=== PATIENT | female | born 1975 | race Caucasian/White ===

== ENCOUNTER → 2016-08-11 | Outpatient (CLI) | payer BC ==
--- NOTE | 2016-08-11 09:09 | US ---
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 Right arm pain x 1 week SIDE PERFORMED: Right Grayscale, color Doppler, spectral Doppler imaging performed of the deep veins of the right upper ext remity. The right internal jugular vein, visualized portions of the subclavian vein, axillary vein sh ow color flow, vascular waveforms and compressibility. Brachial, radial, ulnar veins show color flow and vascular waveforms, compressibility. The basilic vein and cephalic veins are unremarkable. Right Arm: Appears negative for DVT IMPRESSION: No evident deep venous thrombosis involving the deep veins of the right upper extremity.
== END | disposition home or self-care (01) ==
LOC: RADUSMAIN 08:04
PROVIDERS: ATTEND Surgery
DX: M33.20 Polymyositis, organ involvement unspecified (principal)

== ENCOUNTER → 2017-03-22 | Outpatient (CLI) | payer BC ==
[2017-03-22 14:49] LABS: CH 26.9; CHCM 33.1; HCT 39.9 % (34.0-46.0); HDW 2.88; HGB 13.3 gm/dL (11.4-16.0); MCH 27.3 pg (25.0-35.0); MCHC 33.4 g/dL (31.0-37.0); MCV 81.6 fL (80.0-100.0); Mean Platelet Volume 7.8; RBC 4.89 m/uL (3.80-5.40); RDW 14.3 % (11.5-15.5); WBC 8.6 k/uL (3.8-10.6)
[2017-03-22 14:50] LABS: ALT 41 U/L (9-52); AST 35 U/L (14-36); Alkaline Phosphatase 105 U/L (38-126); Anion Gap 11 mmol/L; Blood Urea Nitrogen 13 mg/dL (7-17); Calcium 9.4 mg/dL (8.4-10.2); Carbon Dioxide 23 mmol/L (22-30); Chloride 103 mmol/L (98-107); Creatine Kinase 70 U/L (30-135); Glucose 91 mg/dL (74-99); Non-African American GFR(MDRD) >60 (>60 ml/min/1.73 sqM); Potassium 4.3 mmol/L (3.5-5.1); Sodium 137 mmol/L (137-145); Total Bilirubin 0.5 mg/dL (0.2-1.3); Total Protein 8.1 g/dL (6.3-8.2)
== END | disposition home or self-care (01) ==
LOC: LABWHC1 14:18
PROVIDERS: ATTEND Psychiatry & Neurology Neurology
DX: G72.49 Other inflammatory and immune myopathies, not elsewhere classified (principal)
CPT/HCPCS: 36415; 80053; 82550; 85027

== ENCOUNTER → 2017-03-29 | Outpatient (CLI) | payer BC ==
[2017-03-29 14:09] LABS: Partial Thromboplastin Time 22.7 sec (22.0-30.0); Prothrombin Time 10.3 sec (9.0-12.0)
[2017-03-29 14:24] LABS: Basophils % (A) 0 %; CH 25.9; CHCM 32.2; Eosinophils # (A) 0.1 k/uL (0-0.7); Eosinophils % (A) 2 %; HCT 38.7 % (34.0-46.0); HDW 2.79; HGB 12.7 gm/dL (11.4-16.0); Luc # (Auto) 0.15; Luc % (Auto) 3; Lymphocytes # (A) 2.2 k/uL (1.0-4.8); Lymphocytes % (A) 38 %; MCH 26.4 pg (25.0-35.0); MCHC 32.7 g/dL (31.0-37.0); MCV 80.8 fL (80.0-100.0); Mean Platelet Volume 7.6; Monocytes # (A) 0.5 k/uL (0-1.0); Monocytes % (A) 9 %; Neutrophils # (A) 2.8 k/uL (1.3-7.7); Neutrophils % (A) 48 %; RBC 4.79 m/uL (3.80-5.40); RDW 13.3 % (11.5-15.5); WBC 5.7 k/uL (3.8-10.6)
[2017-04-01 10:39] LABS: Mis test requested (Blood) Factor VIII Activity
== END | disposition home or self-care (01) ==
LOC: LABWHC1 13:16
PROVIDERS: ATTEND Psychiatry & Neurology Neurology
DX: G72.89 Other specified myopathies (principal); R23.3 Spontaneous ecchymoses
CPT/HCPCS: 36415; 85025; 85240; 85610; 85730

== ENCOUNTER → 2017-03-31 | Outpatient (CLI) | payer BC | END | disposition home or self-care (01) | LOC: LABWHC1 11:11 | PROVIDERS: ATTEND Psychiatry & Neurology Neurology | DX: R23.3 Spontaneous ecchymoses (principal); G72.89 Other specified myopathies | CPT/HCPCS: 36415; 86023 ==

== ENCOUNTER → 2017-06-29 | Outpatient (CLI) | payer BC ==
[2017-06-29 13:14] LABS: CH 25.9; CHCM 31.4; HCT 40.7 % (34.0-46.0); HDW 2.73; HGB 12.8 gm/dL (11.4-16.0); Hypochromasia Slight; MCH 26.2 pg (25.0-35.0); MCHC 31.5 g/dL (31.0-37.0); Mean Platelet Volume 7.8; RBC 4.91 m/uL (3.80-5.40); RDW 14.4 % (11.5-15.5); WBC 6.7 k/uL (3.8-10.6)
[2017-06-29 13:16] LABS: Anion Gap 9 mmol/L; Blood Urea Nitrogen 14 mg/dL (7-17); Calcium 9.7 mg/dL (8.4-10.2); Carbon Dioxide 27 mmol/L (22-30); Chloride 103 mmol/L (98-107); Glucose 93 mg/dL (74-99); Non-African American GFR(MDRD) >60 (>60 ml/min/1.73 sqM); Potassium 4.2 mmol/L (3.5-5.1); Sodium 139 mmol/L (137-145)
[2017-06-29 13:32] LABS: Prothrombin Time 9.7 sec (9.0-12.0)
== END | disposition home or self-care (01) ==
LOC: LABWHC1 12:40
PROVIDERS: ATTEND Nurse Practitioner Acute Care
DX: Z01.812 Encounter for preprocedural laboratory examination (principal)
CPT/HCPCS: 36415; 80048; 85027; 85610

== ENCOUNTER → 2017-11-30 | Outpatient (CLI) | payer BC ==
--- NOTE | 2017-11-30 12:26 | CONS ---
CONSULTATION DATE OF SERVICE: 11/30/2017 A 42-year-old lady who has been evaluated in the [facility] for obstructive sleep apnea-hypopnea syndrome and symptoms of excessive daytime sleepiness, even while she is using her CPAP equipment. HISTORY OF PRESENT ILLNESS/SLEEP-WAKE EVALUATION: Patient had been diagnosed with obstructive sleep apnea about 10 years ago. At that time, she was started on treatment with CPAP but used it for about 8 months and then she stopped using it. At that time, she also lost weight from about 240 pounds down to around 180 pounds, then she increased her weight up to around 230 pounds about 2 years ago. At that time, she had a home sleep apnea test. According to patient, it was borderline. She was started on treatment with auto PAP and she tried to use it until recently when her mask was broken for 2 months, but even when she is using her CPAP, she still continued to feel sleepy during the day, sometimes taking naps with vivid dreams, usually does not feel refreshments after naps. Her sleep schedule on working days from 11 p.m. to 8:30 a.m. and the weekend from 9 p.m. to noon. She sometimes has problem with falling asleep for more than 30 minutes, but not more than 1 hour. No TV in bedroom. She sleeps on the stomach position. She is grinding her teeth and she wakes up from sleep up to 5 times at night sometimes without nocturia. Sometimes she will wake up with episode or of heart racing and shakiness. Often she has started to see her dreams right after closing her eyes, possible hypnagogic hallucinations. Positive history of sleep paralysis. No clear history or cataplexy. [place] Sleepiness Scale is 11. PAST MEDICAL HISTORY: Positive for migraines, hypertension, necrotizing autoimmune myopathy, episodes of muscle weakness in the chest, polycystic ovary, anxiety, depression, supraventricular tachycardia. PAST SURGICAL HISTORY: Status post cardiac ablation x3, last in June of 2017. MEDICATIONS: Inderal, Glucophage, CellCept, Zonegran, vitamin D3 supplement, , lisinopril, Celexa, magnesium supplement, aspirin, IVIG,to the port once in 10 days. SOCIAL HISTORY: Negative for smoking or using alcohol. FAMILY HISTORY: Hypertension, heart problems, fibromyalgia, sleep apnea, cancer. REVIEW OF SYSTEMS: Multiple awakenings from sleep, episodes of migraines, episodes of cardiac arrhythmia, daytime sleepiness. . PHYSICAL EXAM: lady without distress, BP 126/81, HR 72, RR 16, height 5 and 6, weight 236, BMI 38, temperature 99, oxygen saturation at room air 98%. OROPHARYNX: Moderately low position of soft palate. Neck 15-1/2 inches in circumference. ABDOMEN: Obese. Some muscle weakness in her hips bilaterally. LUNGS Clear to percussion and to auscultation. Good air exchange. No wheezing or rhonchi. HEART S1, S2 regular. No murmurs, gallops, or rubs. [employer] Awake, alert, and oriented X3. Cranial nerves 2 to 7 intact. There is no fasciculation or atrophy. noted. No focal deficits observed. IMPRESSION: 1. History of obstructive sleep apnea-hypopnea syndrome for 10 years. Presently, patient is on treatment on CPAP but does not feel improvements with the treatment. Continued to have symptoms of excessive daytime sleepiness and multiple awakenings from sleep. 2. Obesity, body mass index of 38. 3. History of necrotizing autoimmune myopathy with episodes of muscle weakness in the chest. 4. Migraines. 5. Hypertension. 6. Polycystic ovary. 7. Anxiety. 8. Depression. 9. History of supraventricular tachycardia episodes with status post cardiac ablations x3. 10.Excessive daytime sleepiness. [place] Sleepiness Scale increased to 11. Positive history of hypnagogic hallucinations and sleep paralysis. Differential diagnosis include additional diagnosis of narcolepsy with differential diagnosis for idiopathic hypersomnia. PLAN: 1. Prescription for new CPAP mask. 2. Patient will continue to use her CPAP. I will see her in 1 month to check her machine and to check apnea-hypopnea index. If apnea-hypopnea index is abnormal, we will proceed with CPAP titration. 3. If apnea-hypopnea index is normal, but patient continued to have her sleepiness during the day, will proceed with the polysomnogram on CPAP with followup multiple sleep latency test for objective evaluation for her symptoms of excessive daytime sleepiness. Differential diagnosis with narcolepsy and idiopathic hypersomnia. 4. Losing weight. 5. No driving if feeling sleepiness. Thank you very much for referring this patient for consultation. Sincerely, Sunny Green MD, PhD, FAASM Diplomat of [employer] [employer] [place] [employer] Cane Weigher [facility] [place] GIOVANNY / ALFREDO: [id number] /
== END | disposition home or self-care (01) ==
LOC: SLEEP 10:10
PROVIDERS: ATTEND Internal Medicine
DX: G47.33 Obstructive sleep apnea (adult) (pediatric) (principal); E66.9 Obesity, unspecified; M62.81 Muscle weakness (generalized); G43.909 Migraine, unspecified, not intractable, without status migrainosus; I10 Essential (primary) hypertension; E28.2 Polycystic ovarian syndrome; F41.9 Anxiety disorder, unspecified; F32.9 Major depressive disorder, single episode, unspecified; Z98.890 Other specified postprocedural states; Z68.38 Body mass index [BMI] 38.0-38.9, adult; Z86.59 Personal history of other mental and behavioral disorders; Z86.79 Personal history of other diseases of the circulatory system; Z79.82 Long term (current) use of aspirin; Z79.899 Other long term (current) drug therapy
CPT/HCPCS: 99211

== ENCOUNTER → 2017-12-28 | Outpatient (CLI) | payer BC | END | disposition home or self-care (01) | LOC: SLEEP 13:21 | PROVIDERS: ATTEND Internal Medicine | DX: Z53.9 Procedure and treatment not carried out, unspecified reason (principal) ==

== ENCOUNTER → 2018-02-05 | Outpatient (CLI) | payer BC ==
--- NOTE | 2018-02-05 22:15 | US ---
EXAMINATION TYPE: US venous doppler duplex LE RT DATE OF EXAM: 02/05/2018 3:52 PM COMPARISON: NONE CLINICAL HISTORY: R609,Edema and [id number] pain in lower leg RLE. SIDE PERFORMED: Right TECHNIQUE: The lower extremity deep venous system is examined utilizing real time linear array sonog maeve with graded compression, doppler sonography and color-flow sonography. VESSELS IMAGED: External Iliac Vein (EIV) Common Femoral Vein Deep Femoral Vein Greater Saphenous Vein * Femoral Vein Popliteal Vein Proximal Calf Veins (* superficial vessels) Right Leg: Negative for DVT Grayscale, color doppler, spectral doppler imaging performed of the deep veins of the right lower ex tremity. There is normal flow, compressibility, vascular waveforms. IMPRESSION: No ultrasound evidence for acute DVT in the right lower extremity.
== END | disposition home or self-care (01) ==
LOC: RADUSWWP 15:46
PROVIDERS: ATTEND Family Medicine
DX: M79.604 Pain in right leg (principal); R60.9 Edema, unspecified

== ENCOUNTER 2019-11-15 13:09 | Day surgery (SDC) | payer BC ==
[2019-11-14 12:16] VITALS: BMI 37.5
[2019-11-15 13:40] LABS: Glucose,Whole Blood 93 mg/dL (75-99)
[2019-11-15] MEDS ORDERED: IOPAMIDOL-250 50ML BTL IV ONE (13:55)
[2019-11-15 16:04] VITALS: BP 120/63; PULSE 72; RESP 16; TEMP 98.2
--- NOTE | 2019-11-18 10:30 | IR ---
Fluoroscopic portogram([facility]). HISTORY: Device malfunction. The patient presented to the CVL with a [place] needle within the port. Preliminary fluoroscopy demonst rated the catheter to be intact. No evidence of extravasation or obstruction. 0.1 minutes of fluor oscopy and 10 image submitted. IMPRESSION: 1. No obstruction or extravasation. See above.
== END 2019-11-15 14:07 | disposition home or self-care (01) ==
LOC: CATHCVL 13:09
PROVIDERS: ATTEND Radiology Diagnostic Radiology
DX: T82.9XXA Unspecified complication of cardiac and vascular prosthetic device, implant and graft, initial encounter (principal); M33.20 Polymyositis, organ involvement unspecified; R53.82 Chronic fatigue, unspecified; I10 Essential (primary) hypertension; E11.9 Type 2 diabetes mellitus without complications; G43.909 Migraine, unspecified, not intractable, without status migrainosus; E28.2 Polycystic ovarian syndrome; Z11.59 Encounter for screening for other viral diseases; Z91.040 Latex allergy status; Z79.899 Other long term (current) drug therapy; Z79.84 Long term (current) use of oral hypoglycemic drugs; Z98.890 Other specified postprocedural states; Z90.49 Acquired absence of other specified parts of digestive tract; Z90.89 Acquired absence of other organs; Z82.69 Family history of other diseases of the musculoskeletal system and connective tissue; Z80.42 Family history of malignant neoplasm of prostate; Z82.49 Family history of ischemic heart disease and other diseases of the circulatory system
CPT/HCPCS: 36598; 81025; 87635; Q9966

== ENCOUNTER → 2020-11-05 | Outpatient (CLI) | payer BC | END | disposition home or self-care (01) | LOC: LABWHC1 12:33 | PROVIDERS: ATTEND Psychiatry & Neurology Neurology | DX: G72.49 Other inflammatory and immune myopathies, not elsewhere classified (principal) | CPT/HCPCS: 36415; 82550; 84165; 85652; 86038; 86334 ==

== ENCOUNTER → 2021-06-02 | Outpatient (CLI) | payer BC ==
--- NOTE | 2021-06-07 11:37 | MM ---
Reason for exam: screening (asymptomatic). Last mammogram was performed 6 years and 5 months ago. History: Family history of breast cancer in paternal grandmother at age 50. Took hormonal contraceptives for 15 years. Physical Findings: A clinical breast exam by your physician is recommended on an annual basis and results should be correlated with mammographic findings. MG 3D Screening Mammo W/Cad Bilateral CC and MLO view(s) were taken. Prior study comparison: December 30, 2014, bilateral MG diagnostic mammo w CAD RAMAN. There are scattered fibroglandular densities. There is no discrete abnormality. ASSESSMENT: Negative, BI-RAD 1 RECOMMENDATION: Routine screening mammogram of both breasts in 1 year.
== END | disposition home or self-care (01) ==
LOC: RADMAMWWP 14:43
PROVIDERS: ATTEND Obstetrics & Gynecology
DX: Z12.31 Encounter for screening mammogram for malignant neoplasm of breast (principal); Z80.3 Family history of malignant neoplasm of breast
CPT/HCPCS: 77063; 77067

== ENCOUNTER → 2021-06-02 | Outpatient (CLI) | payer BC | END | disposition home or self-care (01) | LOC: LABWHC1 15:02 | PROVIDERS: ATTEND Psychiatry & Neurology Neurology | DX: H02.403 Unspecified ptosis of bilateral eyelids (principal); M62.81 Muscle weakness (generalized); R13.10 Dysphagia, unspecified | CPT/HCPCS: 36415 ==

== ENCOUNTER → 2021-08-25 | Outpatient (CLI) | payer BC ==
--- NOTE | 2021-08-25 14:31 | US ---
EXAMINATION TYPE: US gallbladder DATE OF EXAM: 08/25/2021 COMPARISON: NONE CLINICAL HISTORY: K76.0 R94.5. elevated lft's, cholecystectomy, epigastric pain EXAM MEASUREMENTS: Liver Length: 14.1 cm Gallbladder Wall: Surgically absent CBD: 0.9 cm Right Kidney: 10.0 x 4.3 x 6.2 cm overlying bowel gas limits exam Pancreas: very limited views appear wnl Liver: heterogeneous Gallbladder: Surgically absent Evidence for sonographic Alvarado's sign: no CBD: post diaz upper limits of normal Right Kidney: wnl IMPRESSION: Hepatic heterogeneity which may reflect fatty liver.
== END | disposition home or self-care (01) ==
LOC: RADUSWWP 12:59
PROVIDERS: ATTEND Psychiatry & Neurology Neurology
DX: R93.2 Abnormal findings on diagnostic imaging of liver and biliary tract (principal); Z90.49 Acquired absence of other specified parts of digestive tract
CPT/HCPCS: 76705

== ENCOUNTER 2021-10-08 10:51 | Emergency (ER) | payer BC ==
[2021-10-08 12:50] LABS: Basophils # (A) 0.1 k/uL (0-0.2); Basophils % (A) 1 %; Eosinophils # (A) 0.1 k/uL (0-0.7); Eosinophils % (A) 2 %; HGB 12.5 gm/dL (11.4-16.0); Hypochromasia Slight; Lymphocytes # (A) 1.9 k/uL (1.0-4.8); Lymphocytes % (A) 37 %; MCHC 31.4 g/dL (31.0-37.0); MCV 82.9 fL (80.0-100.0); Monocytes # (A) 0.6 k/uL (0-1.0); Monocytes % (A) 11 %; Neutrophils # (A) 2.5 k/uL (1.3-7.7); Neutrophils % (A) 48 %; Platelet Count 215 k/uL (150-450); RBC 4.82 m/uL (3.80-5.40); RDW 13.3 % (11.5-15.5); WBC 5.2 k/uL (3.8-10.6)
[2021-10-08 13:00] LABS: ALT 89 U/L (4-34); African American GFR (CKD) >90 (>60 ml/min/1.73 sqM); Anion Gap 7 mmol/L; Blood Urea Nitrogen 12 mg/dL (7-17); Calcium 8.4 mg/dL (8.4-10.2); Carbon Dioxide 23 mmol/L (22-30); Chloride 106 mmol/L (98-107); Glucose 92 mg/dL (74-99); Non-African American GFR(CKD) >90 (>60 ml/min/1.73 sqM); Sodium 136 mmol/L (137-145)
[2021-10-08 13:05] LABS: AST 107 U/L (14-36); Alkaline Phosphatase 273 U/L (38-126); Total Protein 9.2 g/dL (6.3-8.2)
--- NOTE | 2021-10-08 14:03 | ED ---
General Adult HPI - General Chief complaint: Recheck/Abnormal Lab/Rx Stated complaint: Infected port Time Seen by Provider: 10/08/21 11:14 Source: patient Mode of arrival: ambulatory Limitations: no limitations - History of Present Illness Initial comments: Patient is a 46-year-old female presenting for evaluation of tenderness surrounding her port. Report is located on the right side of the chest, she has had it for [address] Wakefield. She receives IVIG for necrotizing autoimmune myopathy. One day ago she noticed tenderness and swelling surrounding the area. She denies any fever or chills. No nausea or vomiting. No discharge from the area or warmth of the area. Denies chest pain, shortness of breath, abdominal pain, headache, vision or hearing changes, rash, weakness, numbness or tingling. - Related Data Home Medications Medication Instructions Recorded Confirmed Citalopram Hydrobromide [CeleXA] 20 mg PO DAILY 11/14/19 10/08/21 Ivig 60 gm IV. Q10D 11/14/19 10/08/21 Zonisamide [Zonegran] 300 mg PO HS 11/14/19 10/08/21 metFORMIN HCL [Glucophage] 1,000 mg PO BID 11/14/19 10/08/21 mycophenolate mofetiL [Cellcept] 1,000 mg PO BID 11/14/19 10/08/21 Cholecalciferol [Vitamin D3 (25 50 mcg PO DAILY 10/08/21 10/08/21 Mcg = 1000 Iu)] Losartan Potassium 50 mg PO DAILY 10/08/21 10/08/21 Naproxen Sodium [Aleve] 440 mg PO BID 10/08/21 10/08/21 Sotalol [Betapace] 120 mg PO BID 10/08/21 10/08/21 Ubidecarenone [Co Q-10] 1,200 mg PO TID 10/08/21 10/08/21 Previous Rx's Medication Instructions Recorded Cephalexin [Keflex] 500 mg PO Q6HR 7 Days #27 cap 10/08/21 Allergies Allergy/AdvReac Type Severity Reaction Status Date / Time latex Allergy Rash/Hives Verified 10/08/21 13:05 tuberculin,PPD,multi-puncture AdvReac ALWAYS Verified 10/08/21 13:05 TESTS POSITIVE Review of Systems ROS Statement: Those systems with pertinent positive or pertinent negative responses have been documented in the HPI. ROS Other: All systems not noted in ROS Statement are negative. 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 MIGRAINES History of Any Multi-Drug Resistant Organisms: None Reported Past Surgical History: Appendectomy, Cardiac Ablation, Cholecystectomy, Tonsillectomy Additional Past Surgical History / Comment(s): PORT A CATH. CARDIAC ABLATION X3 Past Anesthesia/Blood Transfusion Reactions: No Reported Reaction Past Psychological History: No Psychological Hx Reported Smoking Status: Never smoker Past Alcohol Use History: None Reported Past Drug Use History: None Reported - Past Family History Father Family Medical History: Cancer General Exam Limitations: no limitations General appearance: alert, in no apparent distress Head exam: Present: atraumatic, normocephalic, normal inspection Eye exam: Present: normal appearance, PERRL, EOMI. Absent: scleral icterus, conjunctival injection, periorbital swelling Neck exam: Present: normal inspection Respiratory exam: Present: normal lung sounds bilaterally. Absent: respiratory distress, wheezes, rales, rhonchi, stridor Cardiovascular Exam: Present: regular rate, normal rhythm, normal heart sounds. Absent: systolic murmur, diastolic murmur, rubs, gallop, clicks Neurological exam: Present: alert, oriented X3, CN II-XII intact Psychiatric exam: Present: normal affect, normal mood Skin exam: Present: warm, dry, intact, normal color, other (Area surrounding the cord is mildly tender and swollen. No erythema or discharge). Absent: rash Course Vital Signs 10/08/21 10/08/21 10:56 14:31 Temperature 98.6 F 98 F Pulse Rate 78 84 Respiratory 20 16 Rate Blood Pressure 138/95 131/89 O2 Sat by Pulse 98 96 Oximetry Medical Decision Making - Medical Decision Making Patient is a 46-year-old female presenting with chief complaint of tenderness surrounding her port located on the left side of the chest. Port has been in for 9 years, used for IVIG due to necrotizing autoimmune myopathy. On examination of the area is mildly tender and there is some swelling noted. Area is not erythematous and there is no discharge or cellulitic changes seen. Labwork shows no leukocytosis, lactic acid was negative. Cultures obtained. Spoke with Dr. Saavedra, who advised the use of an oral antibiotic while cultures are pending. Patient was sent home on Keflex 500 mg 4 times a day for 7 days. Educated the patient on return parameters on alarms symptoms. Answered all questions. Follow-up with PCP in one to 2 days. Report back to ER with any worsening symptoms. Patient conveyed verbal understanding and agreed to the plan. My attending is Dr. Mg. - Lab Data Result diagrams: 10/08/21 12:34 10/08/21 12:34 Lab Results 10/08/21 10/08/21 10/08/21 Range/Units 12:34 12:34 12:34 WBC 5.2 (3.8-10.6) k/uL RBC 4.82 (3.80-5.40) m/uL Hgb 12.5 (11.4-16.0) gm/dL Hct 40.0 (34.0-46.0) % MCV 82.9 (80.0-100.0) fL MCH 26.0 (25.0-35.0) pg MCHC 31.4 (31.0-37.0) g/dL RDW 13.3 (11.5-15.5) % Plt Count 215 (150-450) k/uL MPV 9.0 Neutrophils % 48 % Lymphocytes % 37 % Monocytes % 11 % Eosinophils % 2 % Basophils % 1 % Neutrophils # 2.5 (1.3-7.7) k/uL Lymphocytes # 1.9 (1.0-4.8) k/uL Monocytes # 0.6 (0-1.0) k/uL Eosinophils # 0.1 (0-0.7) k/uL Basophils # 0.1 (0-0.2) k/uL Hypochromasia Slight Sodium 136 L (137-145) mmol/L Potassium 5.0 (3.5-5.1) mmol/L Chloride 106 (98-107) mmol/L Carbon Dioxide 23 (22-30) mmol/L Anion Gap 7 mmol/L BUN 12 (7-17) mg/dL Creatinine 0.48 L (0.52-1.04) mg/dL Est GFR (CKD-EPI)AfAm >90 (>60 ml/min/1.73 sqM) Est GFR (CKD-EPI)NonAf >90 (>60 ml/min/1.73 sqM) Glucose 92 (74-99) mg/dL Plasma Lactic Acid Solomon 1.1 (0.7-2.0) mmol/L Calcium 8.4 (8.4-10.2) mg/dL Total Bilirubin 1.0 (0.2-1.3) mg/dL AST 107 H (14-36) U/L ALT 89 H (4-34) U/L Alkaline Phosphatase 273 H (38-126) U/L Total Protein 9.2 H (6.3-8.2) g/dL Albumin 4.0 (3.5-5.0) g/dL Disposition Clinical Impression: Suspected soft tissue infection Disposition: HOME SELF-CARE Condition: Good Instructions (If sedation given, give patient instructions): Cellulitis (ED) Additional Instructions: Follow-up with PCP in one to 2 days. You will be contacted with blood culture results. Take medication as prescribed. Report back to ER with any worsening symptoms or new onset alarming symptoms, including but not limited to fever, chills, nausea, vomiting, increased redness or swelling, increased tenderness, discharge from the site. Prescriptions: Cephalexin [Keflex] 500 mg PO Q6HR 7 Days #27 cap Is patient prescribed a controlled substance at d/c from ED?: No Referrals: Juan J Shelby DO [Primary Care Provider] - 1-2 days Time of Disposition: 14:16
[2021-10-08] MEDS ORDERED: CEPHALEXIN 500 MG CAP PO STA (14:07)
[2021-10-08 14:32] VITALS: BP 131/89; PULSE 84; RESP 16; TEMP 98
== END 2021-10-08 14:31 | disposition home or self-care (01) ==
LOC: EC 10:51
DX: R07.89 Other chest pain (principal); M79.89 Other specified soft tissue disorders; I10 Essential (primary) hypertension; I48.91 Unspecified atrial fibrillation; Z79.84 Long term (current) use of oral hypoglycemic drugs; Z79.899 Other long term (current) drug therapy
CPT/HCPCS: 36415; 80053; 83605; 85025; 87040; 99283

== ENCOUNTER → 2022-03-24 | Outpatient (CLI) | payer BC ==
[2022-03-24 18:15] LABS: Basophils # (A) 0.06 X 10*3/uL (0.00-0.10); Basophils % (A) 1.1 %; Eosinophils # (A) 0.23 X 10*3/uL (0.04-0.35); Eosinophils % (A) 4.3 %; HCT 40.1 % (37.2-46.3); HGB 12.1 g/dL (12.0-15.0); Immature Grans, Automated 0.4 %; Lymphocytes # (A) 2.13 X 10*3/uL (0.90-5.00); Lymphocytes % (A) 39.4 %; MCH 23.7 pg (27.0-32.0); MCHC 30.2 g/dL (32.0-37.0); MCV 78.6 fL (80.0-97.0); Mean Platelet Volume 11.9 fL (9.5-12.2); Monocytes # (A) 0.96 X 10*3/uL (0.20-1.00); Monocytes % (A) 17.8 %; NRBC Per 100 WBC 0 /100 WBCS (0.0-0.0); Platelet Count 223 X 10*3/uL (140-440); RDW 16.6 % (11.5-14.5)
[2022-03-24 18:56] LABS: African American GFR (CKD) 126.7 (60.0-200.0); Albumin 3.9 g/dL (3.8-4.9); Albumin/Globulin Ratio 0.93 (1.60-3.17); Anion Gap 10.2 mmol/L (10.00-18.00); BUN/Creat Ratio 16.17 Ratio (12.00-20.00); Blood Urea Nitrogen 9.7 mg/dL (9.0-27.0); Calcium 9.3 mg/dL (8.7-10.3); Carbon Dioxide 24.8 mmol/L (20.0-27.5); Globulin 4.2 g/dL (1.6-3.3); Non-African American GFR(CKD) 109.3 (60.0-200.0); Potassium 4.2 mmol/L (3.5-5.5); Total Bilirubin 0.8 mg/dL (0.30-1.20); Total Protein 8.1 g/dL (6.2-8.2)
== END | disposition home or self-care (01) ==
LOC: LABWHC1 11:56
PROVIDERS: ATTEND Psychiatry & Neurology Neurology
DX: G72.89 Other specified myopathies (principal); U09.9 Post COVID-19 condition, unspecified
CPT/HCPCS: 36415; 80053; 82550; 85025

== ENCOUNTER 2022-07-29 05:59 | Day surgery (SDC) | payer BC ==
[~2022-07-29 05:59] MED LIST: ACETAMINOPHEN TAB 500 MG TAB PO PRN; HEPARIN SODIUM,PORCINE/PF 5,000 UNIT/0.5 ML SYRINGE SQ PRN
[2022-07-29] MEDS ORDERED: MIDAZOLAM 2 MG/2 ML VIAL IV PRN (06:06)
[2022-07-29] MEDS ORDERED: LACTATED RINGERS 1,000 ML IV SCH ×2 (06:06)
[2022-07-29] MEDS ORDERED: DEXAMETHASONE SOD PHOSPHATE 4 MG/ML 1 ML VIAL IV ONE (06:06)
[2022-07-29] MEDS ORDERED: LIDOCAINE 1% (10MG/ML) FOR IV START INTRADERMA PRN (06:06)
[2022-07-29] MEDS ORDERED: HYDROmorphone 0.5 MG/0.5 ML SYRINGE IVP PRN (06:06)
[2022-07-29] MEDS ORDERED: ONDANSETRON 4 MG/2 ML VIAL IVP ONE ×2 (06:06→06:56)
[2022-07-29] MEDS ORDERED: fentaNYL (PF) 50 MCG/ML 2 ML AMP IVP PRN (06:06)
[2022-07-29] MEDS ORDERED: DEXAMETHASONE SOD PHOSPHATE 4 MG/ML 1 ML VIAL IVP ONE (06:56)
[2022-07-29 07:13] LABS: Glucose,Whole Blood 122 mg/dL (70-110)
[2022-07-29] MEDS ORDERED: fentaNYL (PF) 50 MCG/ML 2 ML AMP ONE (07:25)
[2022-07-29] MEDS ORDERED: MIDAZOLAM 2 MG/2 ML VIAL ONE (07:25)
[2022-07-29] MEDS ORDERED: ePHEDrine 50 MG/ML 1 ML VIAL ONE (07:25)
[2022-07-29] MEDS ORDERED: PHENYLEPHRINE-0.9% NACL SYG 1,000 MCG/10 ML SYRINGE ONE (07:25)
[2022-07-29] MEDS ORDERED: LIDOCAINE 2% INJ 20 MG/ML (2 ML VIAL) ONE (07:25)
[2022-07-29] MEDS ORDERED: PROPOFOL 10 MG/ML 20 ML VIAL IV ONE (07:25)
[2022-07-29] MEDS ORDERED: LIDOCAINE 1% INJ 10MG/ML (30 ML VIAL-PF) SQ ONE ×2 (07:30)
--- NOTE | 2022-07-29 07:31 | P.GSHP ---
History of Present Illness H&P Date: 07/29/22 Chief Complaint: Polymyositis 47-year-old female here today for Port-A-Cath replacement. Patient requires ongoing infusions every 2-4 weeks. Currently has a 8-[place] catheter on the right-hand side. Stopped working in the last several weeks. 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 MIGRAINES History of Any Multi-Drug Resistant Organisms: None Reported Past Surgical History: Appendectomy, Cardiac Ablation, Cholecystectomy, Tonsillectomy Additional Past Surgical History / Comment(s): PORT A CATH. CARDIAC ABLATION X3 Past Anesthesia/Blood Transfusion Reactions: No Reported Reaction Smoking Status: Former smoker - Past Family History Father Family Medical History: Cancer Medications and Allergies Home Medications Medication Instructions Recorded Confirmed Type Citalopram Hydrobromide [CeleXA] 20 mg PO DAILY 11/14/19 07/29/22 History Ivig 60 gm IV. Q10D 11/14/19 07/29/22 History Zonisamide [Zonegran] 300 mg PO HS 11/14/19 07/29/22 History metFORMIN HCL [Glucophage] 1,000 mg PO BID 11/14/19 07/29/22 History Cholecalciferol [Vitamin D3 (25 50 mcg PO DAILY 10/08/21 07/29/22 History Mcg = 1000 Iu)] Losartan Potassium 50 mg PO DAILY 10/08/21 07/29/22 History Naproxen Sodium [Aleve] 440 mg PO BID 10/08/21 07/29/22 History Sotalol [Betapace] 120 mg PO BID 10/08/21 07/29/22 History Ubidecarenone [Co Q-10] 1,200 mg PO TID 10/08/21 07/29/22 History Allergies Allergy/AdvReac Type Severity Reaction Status Date / Time latex Allergy Rash/Hives Verified 07/29/22 06:17 tuberculin,PPD,multi-puncture AdvReac ALWAYS Verified 07/29/22 06:17 TESTS POSITIVE Surgical - Exam Vital Signs Temp Pulse Resp BP Pulse Ox 97.0 F L 83 14 117/75 97 07/29/22 06:32 07/29/22 06:32 07/29/22 06:32 07/29/22 06:32 07/29/22 06:32 Physical exam: General: Well-developed, well-nourished HEENT: Normocephalic, sclerae nonicteric Chest: Right-sided Port-A-Cath in place Abdomen: Nontender, nondistended Extremities: No edema Neuro: Alert and oriented Results - Labs Abnormal Lab Results - Last 24 Hours (Table) 07/29/22 Range/Units 06:47 POC Glucose (mg/dL) 122 H (70-110) mg/dL Assessment and Plan (1) Polymyositis Narrative/Plan: 47-year-old female with malfunctioning Port-A-Cath. We'll proceed with Port-A-Cath removal and replacement. Discussed options of placing the catheter back on the right side or possibly moving to the left at this time. Patient is fine with either location. We'll decide intraoperatively. Risks of bleeding, infection, DVT, pneumothorax, catheter malfunction, anesthesia related compli cations were discussed. The patient understands and wishes to proceed. Current Visit: Yes Status: Acute Code(s): M33.20 - POLYMYOSITIS, ORGAN INVOLVEMENT UNSPECIFIED SNOMED Code(s): 04201860
[2022-07-29] MEDS ORDERED: IOPAMIDOL-370 50ML BTL MISCELLANE ONE (08:14)
--- NOTE | 2022-07-29 08:54 | P.OP ---
Date of Procedure: 07/29/22 Procedure(s) Performed: PREOPERATIVE DIAGNOSIS: Polymyositis, cervical myelopathy POSTOPERATIVE DIAGNOSIS: Same PROCEDURE: Port-A-Cath removal, attempted Port-A-Cath placement, bilateral jugular venogram SURGEON: Twyla EBL: Minimal ANESTHESIA: General COMPLICATIONS: None OPERATIVE PROCEDURE: Patient was placed in the supine position. The patient was placed under general anesthesia at that time. The chest was prepped and draped in the usual sterile fashion. The skin was localized with Marcaine solution. The previous incision was re-incised using a scalpel. The port was dissected from the subcutaneous tissues without difficulty. Unfortunately the catheter was not able to be removed by traction. This was an 8-Sammar[place] catheter placed via a right jugular approach. A counter incision was made in the right lower neck near the bend in the catheter. The catheter was easily grasped at that time and with gentle traction was able to be removed. Pressure was held. A 3-0 Vicryl suture was placed and no further bleeding was seen. The skin there was closed using a 4-0 Monocryl stitch. Using the ultrasound machine I was able to visualize the course of the right internal jugular vein without difficulty. It had an appropriate size. Using a Seldinger technique I was able to access the vein without difficulty under ultrasound guidance and the wire was advanced. Under fluoroscopy the wire was able to reach the junction with the subclavian vein and would not pass more proximal than that. A venogram took place which showed tortuosity at that junction. Additional attempts at wire advancement were unsuccessful. We then tried the left jugular approach. Again the ultrasound was used to confirm placement of the Seldinger needle into the vein. The wire was again advanced and once again we unfortunately reached the junction with the left subclavian vein and were not able to advance the wire more proximal. A venogram again showed tortuosity there but there was some patency present. Video was saved of the venogram bilaterally. The wire was removed. Pressure was held. The subcutaneous tissues at the previous port site were reapproximated using 3-0 Vicryl sutures. The skin was reapproximated using 4-0 Monocryl sutures. Skin glue was then applied. DISPOSITION: Stable to recovery room
[2022-07-29 09:07] VITALS: TEMP 97.2
[2022-07-29 09:24] LABS: Glucose,Whole Blood 106 mg/dL (70-110)
--- NOTE | 2022-07-29 09:24 | XR ---
EXAMINATION TYPE: XR chest 1V portable DATE OF EXAM: 07/29/2022 Comparison: None Clinical History: 47-year-old female Check line placement Findings: Very low lung volumes with crowded vascular markings. Heart appears mildly enlarged. Central line not well seen. Possible subtle density in the right IJ region. Clinically correlate. Patchy interstitial changes mid and lower lungs. Impression: 1. Central line not well seen. Questionable subtle density at the right IJ region. 2. Limited by markedly diminished lung volumes. Patchy interstitial changes throughout probably hypov entilatory changes. Correlate to exclude mild patchy pulmonary edema or infiltrates. Consider repeat with adequate inspiratory effort when patient able.
--- NOTE | 2022-07-29 09:26 | FL ---
EXAMINATION TYPE: FL fluoroscopy <1hr DATE OF EXAM: 07/29/2022 FLUOROSCOPY Fluoroscopy time of 50 seconds was used during removal and failed insertion of Port-A-Cath. 199 imag e/s document/s the procedure.
[2022-07-29] MEDS ORDERED: LACTATED RINGERS 1,000 ML IV ONE (11:00)
[2022-07-29 11:12] VITALS: RESP 16
[2022-07-29 11:26] VITALS: BP 95/62; PULSE 93
[2022-07-29] MEDS ORDERED: IBUPROFEN 600 MG TAB PO SCH (11:45)
[2022-07-29] MEDS ORDERED: ACETAMINOPHEN TAB 325 MG TAB PO SCH (12:00)
== END 2022-07-29 11:41 | disposition home or self-care (01) ==
LOC: OR 05:59
PROVIDERS: ATTEND Surgery
DX: M33.20 Polymyositis, organ involvement unspecified (principal); I48.91 Unspecified atrial fibrillation; I10 Essential (primary) hypertension; Z98.890 Other specified postprocedural states; Z90.49 Acquired absence of other specified parts of digestive tract; Z90.89 Acquired absence of other organs; Z87.891 Personal history of nicotine dependence; Z79.84 Long term (current) use of oral hypoglycemic drugs; Z79.899 Other long term (current) drug therapy; Z91.040 Latex allergy status; Z88.8 Allergy status to other drugs, medicaments and biological substances
CPT/HCPCS: 94660; 81025; 76000; 71045; 36561; 36590; 75860; J2250; J1100; J0690; J2405; J2001 ×2; J3010; J1642; J2370; J2704; Q9967; J1644

== ENCOUNTER → 2023-04-27 | Outpatient (CLI) | payer BC ==
[~2023-04-27] MED LIST changes: -ACETAMINOPHEN TAB 500 MG TAB PO PRN; -HEPARIN SODIUM,PORCINE/PF 5,000 UNIT/0.5 ML SYRINGE SQ PRN; +IRON SUCROSE 200 MG in SODIUM CHLORIDE 0.9% 100 ML IVPB NR; +SODIUM CHLORIDE 0.9% 500 ML 500 ML in EMPTY BAG 1 BAG IV PRN
[2023-04-27 13:39] VITALS: BP 119/87; PULSE 89; RESP 16; TEMP 98.7
== END ==
LOC: PROCWHC3 12:48
PROVIDERS: ATTEND Family Medicine
DX: D50.8 Other iron deficiency anemias (principal)
CPT/HCPCS: 96365; J1756; J1642

== ENCOUNTER 2024-07-12 14:44 | Emergency (ER) | payer MEDICARE, BC ==
[2024-07-12 14:56] VITALS: RESP 18; TEMP 98.3
--- NOTE | 2024-07-12 16:12 | ED ---
General Adult HPI - General Chief complaint: Recheck/Abnormal Lab/Rx Stated complaint: clogged port Time Seen by Provider: 07/12/24 15:00 Source: patient, RN notes reviewed, old records reviewed Mode of arrival: ambulatory Limitations: no limitations - History of Present Illness Initial comments: This is a 48-year-old female presents to the emergency department stating that she has a port and got clogged this morning after she was given Solu-Medrol and they were trying to give her some IgG infusions. Patient states she came here to see if there was any way to get the clot broke up because she does not want to get another catheter. Patient denies any other symptoms at this time. - Related Data Home Medications Medication Instructions Recorded Confirmed Citalopram Hydrobromide [CeleXA] 20 mg PO DAILY 11/14/19 04/27/23 Ivig 60 gm IV. Q10D 11/14/19 04/27/23 Zonisamide [Zonegran] 300 mg PO HS 11/14/19 04/27/23 metFORMIN HCL [Glucophage] 1,000 mg PO BID 11/14/19 04/27/23 Cholecalciferol [Vitamin D3 (25 50 mcg PO DAILY 10/08/21 04/27/23 Mcg = 1000 Iu)] Losartan Potassium 50 mg PO DAILY 10/08/21 04/27/23 Sotalol [Betapace] 120 mg PO BID 10/08/21 04/27/23 Ubidecarenone [Co Q-10] 1,200 mg PO TID 10/08/21 04/27/23 Omeprazole [PriLOSEC] 1 tab PO DAILY 04/27/23 04/27/23 Rifaximin [Xifaxan] 1 tab PO BID 04/27/23 04/27/23 Tenofovir Disoproxil Fumarate 1 tab PO DAILY 04/27/23 04/27/23 ursodioL [Actigall] 600 mg PO BID 04/27/23 04/27/23 Previous Rx's Medication Instructions Recorded HYDROcodone/APAP 5-325MG [[place] 1 tab PO Q6HR PRN 3 Days #6 tab 07/29/22 5-325] Allergies Allergy/AdvReac Type Severity Reaction Status Date / Time latex Allergy Rash/Hives Verified 07/12/24 14:52 nickel Allergy Unknown Verified 07/12/24 14:52 tuberculin,PPD,multi-puncture AdvReac ALWAYS Verified 07/12/24 14:52 TESTS POSITIVE Review of Systems ROS Statement: Those systems with pertinent positive or pertinent negative responses have been documented in the HPI. ROS Other: All systems not noted in ROS Statement are negative. 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 MIGRAINES History of Any Multi-Drug Resistant Organisms: None Reported Past Surgical History: Appendectomy, Cardiac Ablation, Cholecystectomy, Tonsillectomy Additional Past Surgical History / Comment(s): PORT A CATH. CARDIAC ABLATION X3. Liver disease Past Anesthesia/Blood Transfusion Reactions: No Reported Reaction Past Psychological History: No Psychological Hx Reported Smoking Status: Former smoker Past Alcohol Use History: None Reported Past Drug Use History: None Reported - Past Family History Father Family Medical History: Cancer General Exam - General Exam Comments Initial Comments: GENERAL: Patient is well-developed and well-nourished. Patient is nontoxic and well- hydrated and is in no acute distress. ENT: Neck is soft and supple. No significant lymphadenopathy is noted. Oropharynx is clear. Moist mucous membranes. Neck has full range of motion without e liciting any pain. EYES: The sclera were anicteric and conjunctiva were pink and moist. Extraocular movements were intact and pupils were equal round and reactive to light. Eyelids were unremarkable. SKIN: Skin is clear with no lesions or rashes and otherwise unremarkable. NEUROLOGIC: Patient is alert and oriented x3. Cranial nerves II through XII are grossly intact. Motor and sensory are also intact. Normal speech, volume and content. Symmetrical smile. MUSCULOSKELETAL: Normal extremities with adequate strength and full range of motion. LYMPHATICS: No significant lymphadenopathy is noted PSYCHIATRIC: Normal psychiatric evaluation. Limitations: no limitations Course Vital Signs 07/12/24 14:52 Temperature 98.3 F Pulse Rate 83 Respiratory 18 Rate Blood Pressure 141/89 O2 Sat by Pulse 96 Oximetry Medical Decision Making - Medical Decision Making Was pt. sent in by a medical professional or institution (, PA, DIRECTOR HAIR, urgent care, hospital, or long term...) When possible be specific @ -No Did you speak to anyone other than the patient for history (EMS, parent, family, police, friend...)? What history was obtained from this source @ -No Did you review nursing and triage notes (agree or disagree)? Why? @ -I reviewed and agree with nursing and triage notes Were old charts reviewed (outside hosp., previous admission, EMS record, old EKG, old radiological studies, urgent care reports/EKG's, long term records)? Report findings @ -No old charts were reviewed Differential Diagnosis? @ -Clogged port, malfunctioning port, this is not an all-inclusive list EKG interpreted by me (3pts min.). @ -As above X-rays interpreted by me (1pt min.). @ -None done CT interpreted by me (1pt min.). @ -None done U/S interpreted by me (1pt. min.). @ -None done What testing was considered but not performed or refused? (CT, X-rays, U/S, labs)? Why? @ -None What meds were considered but not given or refused? Why? @ -None Did you discuss the management of the patient with other professionals (professionals i.e. , PA, DIRECTOR HAIR, lab, RT, psych nurse, social worker masters, biometrics analyst, teacher, transport corps officer, caseworker protective services)? Give summary @ -No Was smoking cessation discussed for >3mins.? @ -No Was critical care preformed (if so, how long)? @ -No Were there social determinants of health that impacted care today? How? (Homelessness, low income, unemployed, alcoholism, drug addiction, transportation, low edu. Level, literacy, decrease access to med. care, usp, rehab)? @ -No Was there de-escalation of care discussed even if they declined (Discuss DNR or withdrawal of care, Hospice)? DNR status @ -No What co-morbidities impacted this encounter? (DM, HTN, Smoking, COPD, CAD, Cancer, CVA, ARF, Chemo, Hep., AIDS, mental health diagnosis, sleep apnea, morbid obesity)? @ -None Was patient admitted / discharged? Hospital course, mention meds given and route, prescriptions, significant lab abnormalities, going to OR and other pertinent info. @ -Nursing was able to get the port to operate and patient was comfortable going home and tomorrow they will go and get an infusion if it does not work they will return to the emergency department Undiagnosed new problem with uncertain prognosis? @ -No Drug Therapy requiring intensive monitoring for toxicity (Heparin, Nitro, Insulin, Cardizem)? @ -No Were any procedures done? @ -No Diagnosis/symptom? @ -Clotted port Acute, or Chronic, or Acute on Chronic? @ -Acute Uncomplicated (without systemic symptoms) or Complicated (systemic symptoms)? @ -Default Side effects of treatment? @ -No Exacerbation, Progression, or Severe Exacerbation? @ -No Poses a threat to life or bodily function? How? (Chest pain, [place], [place], pneumonia, PE, COPD, DKA, ARF, appy, cholecystitis, CVA, Diverticulitis, Homicidal, Suicidal, threat to staff... and all critical care pts) @ -No Disposition Clinical Impression: Problem with vascular access Disposition: HOME SELF-CARE Condition: Good Is patient prescribed a controlled substance at d/c from ED?: No Referrals: Juan J Shelby DO [Primary Care Provider] - 1-2 days Time of Disposition: 18:24
[2024-07-12] MEDS: ALTEPLASE 2 MG VIAL (CATHFLO) IV STA (17:30)
[2024-07-12 19:08] VITALS: BP 132/84; PULSE 80
== END 2024-07-12 19:11 | disposition home or self-care (01) ==
LOC: EC 14:44
DX: Z45.2 Encounter for adjustment and management of vascular access device (principal); Z91.040 Latex allergy status; Z88.8 Allergy status to other drugs, medicaments and biological substances; Z87.891 Personal history of nicotine dependence
CPT/HCPCS: 99282